=== PATIENT | male | born 1970 | race Caucasian/White ===

== ENCOUNTER 2021-05-25 19:15 | Emergency (ER) | payer OTHER ==
[~2021-05-25] VITALS: Ht 177.8 cm; Wt 127.0 kg
[~2021-05-25 19:15] MED LIST: LIBRIUM25 MG PO; NICOTINE PATCH1 EAC2 TD; OFLOXACIN5 M1 AU
[2021-05-25 20:00] LABS: BASOPHIL 0.6 % (0-2); EOSINOPHIL 0 % (0-5); HCT 40.4 % (42.0-52.0); HGB 13.7 g/dl (13.2-18.0); LYMPHOCYTE 3.4 % (15-48); MCH 30.8 pg (25.0-31.0); MCHC 33.9 g/dL (32.0-36.0); MCV 90.8 fL (78.0-100.0); MONOCYTE 0.8 % (0-12); MPV 12.8 fL (6.0-9.5); NRBC 0; PLT 220 K/uL (150-400); RBC 4.45 M/uL (4.70-6.00); RDW 15.3 % (11.5-14.0); WBC 22.7 K/uL (4.0-10.5)
[2021-05-25 20:10] LABS: NEUTROPHIL 93.9 % (41-80)
[2021-05-25 20:23] LABS: ALBUMIN 2.5 g/dL (3.4-5.0); BILIRUBIN - TOTAL 0.5 mg/dL (0.2-1.0); BUN/CREAT RATIO (CALC) 15.9 RATIO; CREATININE 2.76 mg/dL (0.67-1.17); GLOBULIN (CALCULATION) 5.2 g/dL; POTASSIUM 5.1 mmol/L (3.5-5.1); TOTAL PROTEIN 7.7 g/dL (6.4-8.2)
[2021-05-25 20:31] LABS: CORONAVIRUS 2019 SARS-COV-2 NEGATIVE (NEGATIVE); INFLUENZA A NAA NEGATIVE (NEGATIVE)
[2021-05-25 20:43] LABS: INR 1.22 (0.9-1.2); PROTHROMBIN TIME 14.8 SECONDS (11.8-13.4); PTT 50.4 SECONDS (24.4-34.7)
[2021-05-26 16:53] LABS: BUN/CREAT RATIO (CALC) 34.4 RATIO; CREATININE 0.9 mg/dL (0.67-1.17); POTASSIUM 3.2 mmol/L (3.5-5.1)
== END 2021-05-26 21:00 | disposition admitted as inpatient to this hospital (09) ==
LOC: FER 19:15
PROVIDERS: Emergency Medicine
DX: A41.9 Sepsis, unspecified organism (principal); R65.20 Severe sepsis without septic shock; J18.9 Pneumonia, unspecified organism; N17.9 Acute kidney failure, unspecified; J96.01 Acute respiratory failure with hypoxia; F17.200 Nicotine dependence, unspecified, uncomplicated; Z20.822 Contact with and (suspected) exposure to COVID-19
CPT/HCPCS: 36415; 36600; 71045; 71250; 80048; 80053; 82803; 83605; 83880; 84145; 84484; 85025; 85379; 85610; 85730; 87040; 87077; 87186; 87449; 93005; 93970; J0692; J1644; J3370; J7030; J7040; U0002